=== PATIENT | female | born 1960 | race Caucasian/White ===

== ENCOUNTER 2016-09-25 09:16 | Day surgery (SDC) | payer BC ==
--- NOTE | 2016-09-26 08:09 | OR ---
ADMIT: 09/25/2016 RM/LOC: [facility] MR#: [id number] [address] [place] [address] [address] [facility] [place] [address] Operative/Delivery Room Report SEX: F AGE: 56 : 1960 SURGERY DATE: 09/25/2016 SURGEON: Lety Lewis MD LOADING MACHINE ADJUSTER: None. PREOPERATIVE DIAGNOSES: 1. Right shoulder pain. 2. Right shoulder arthritis. POSTOPERATIVE DIAGNOSES: 1. Right shoulder pain. 2. Right shoulder arthritis. OPERATION: Right shoulder joint injection, anterior approach. INDICATIONS FOR PROCEDURE: The patient is a pleasant female with history of chronic right shoulder pain secondary to above-mentioned diagnoses, comes here for planned right shoulder injection. ANESTHESIA: Local without sedation. ESTIMATED BLOOD LOSS: Zero. COMPLICATIONS: None immediately evident. DESCRIPTION OF THE PROCEDURE: After patient was seen in preoperative area, vital signs were taken. Prior to procedure, the risks, benefits, and alternative therapies were discussed at length. Patient consent was obtained and updated. The patient was taken to Fluoroscopy Suite and placed on a fluoroscopy table in a prone position. Pressure points were padded to comfort, monitors applied and a timeout performed. C-arm was brought in to identify the right shoulder joint. Lidocaine plain, 1%, approximately 1 mL was used to anesthetize the skin, underlying ADMIT: 09/25/2016 RM/LOC: [facility] MR#: [id number] [address] [place] [address] [address] [place] [address] Operative/Delivery Room Report SEX: F AGE: 56 : 1960 subcutaneous tissue. A 3.5 inch 22-gauge curved-tip needle was then advanced through the anesthetized skin and placed into the right shoulder joint space. Isovue-300 was injected into joint and showed good spread into the shoulder joint. After correct placement was confirmed, 3 mL of 1% lidocaine and 80 mg of Depo-Medrol were injected. The patient tolerated the procedure well without any complications. The patient was then brought to PACU where she recovered nicely. PLAN: The patient was examined 20 minutes after the conclusion of the procedure and had 80% reduction of pain. Discharge instructions were given, followup scheduled. 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 Lety Lewis MD/ barbie JOB #: [id number] CC: Lety Lewis, Attending Physician Heidi Vanegas, Family Physician
== END 2016-09-25 10:51 | disposition home or self-care (01) ==
LOC: SSS 09:16
PROC: 3E0U3BZ Introduction of Anesthetic Agent into Joints, Percutaneous Approach (ICD-10-PCS; principal; 2016-09-25)
PROC: 3E0U33Z Introduction of Anti-inflammatory into Joints, Percutaneous Approach (ICD-10-PCS; principal; 2016-09-25)
DX: G89.29 Other chronic pain (principal); M19.011 Primary osteoarthritis, right shoulder; M50.90 Cervical disc disorder, unspecified, unspecified cervical region; M47.812 Spondylosis without myelopathy or radiculopathy, cervical region; M79.1 Myalgia; Z88.6 Allergy status to analgesic agent; Z79.899 Other long term (current) drug therapy; Z87.891 Personal history of nicotine dependence